=== PATIENT | male | born 1980 | race African-American/Black ===

== ENCOUNTER 2022-06-02 10:38 | Inpatient (IN) | payer OTHER ==
[2022-06-02 13:59] VITALS: BMI 23.5
[2022-06-02] MEDS ORDERED: DICYCLOMINE HCL 10 MG CAPSULE PO PRN (15:48)
[2022-06-02] MEDS ORDERED: IBUPROFEN 600 MG TABLET (FP) PO PRN (15:48)
[2022-06-02] MEDS ORDERED: chlordiazePOXIDE HCL 25 MG CAPSULE PO PRN (15:48)
[2022-06-02] MEDS ORDERED: MAG HYDROX/AL HYDROX/SIMETH 30 ML UNIT-DOSE CUP PO PRN (15:48)
[2022-06-02] MEDS ORDERED: NICOTINE 10 MG CARTRIDGE (INHALER) IH PRN (15:48)
[2022-06-02] MEDS ORDERED: MAGNESIUM CITRATE 300 ML BOTTLE PO PRN (15:48)
[2022-06-02] MEDS ORDERED: IBUPROFEN 400 MG TABLET (FP) PO PRN (15:48)
[2022-06-02] MEDS ORDERED: LOPERAMIDE HCL 2 MG CAPSULE PO PRN (15:48)
[2022-06-02] MEDS ORDERED: MAGNESIUM HYDROX 2400MG/30ML ORAL SUSPENSION 30 ML CUP PO PRN (15:48)
[2022-06-02] MEDS ORDERED: NALOXONE HCL (KLOXXADO) 8 MG SPRAY NS PRN (15:48)
[2022-06-02] MEDS ORDERED: ONDANSETRON *ODT* 4 MG TABLET SL PRN (15:48)
[2022-06-02] MEDS ORDERED: ACETAMINOPHEN 325 MG TABLET (FP) PO PRN ×2 (15:48)
[2022-06-02] MEDS ORDERED: BENZOCAINE/MENTHOL (CHLORASEPTIC ) LOZENGE MM PRN (15:48)
[2022-06-02] MEDS ORDERED: BISMUTH SUBSALICYLATE 524 MG/30 ML PO PRN (15:48)
[2022-06-02] MEDS ORDERED: hydrOXYzine PAMOATE 25 MG CAPSULE (FP) PO ONE (16:25)
[2022-06-02] MEDS: hydrOXYzine PAMOATE 25 MG CAPSULE (FP) PO PRN ×3 (16:28→22:40)
[2022-06-02] MEDS: chlordiazePOXIDE HCL 25 MG CAPSULE PO SCH ×2 (17:04→22:40)
[2022-06-02] MEDS ORDERED: chlordiazePOXIDE HCL 25 MG CAPSULE ONE (17:05)
[2022-06-02] MEDS: METHOCARBAMOL 500 MG TABLET PO PRN (18:18)
[2022-06-02] MEDS: MELATONIN 5 MG TABLETS PO SCH (22:40)
[2022-06-02] MEDS: THIAMINE HCL 100 MG TABLET (FP) PO SCH (22:40)
[2022-06-03] MEDS: chlordiazePOXIDE HCL 25 MG CAPSULE PO SCH ×4 (06:05→22:22)
[2022-06-03] MEDS: PRENATAL VITAMINS W/ FOLIC ACID TABLET (FP) PO SCH (10:38)
[2022-06-03] MEDS: amLODIPine BESYLATE 5 MG TABLET (FP) PO SCH (10:38)
[2022-06-03] MEDS: METOPROLOL TARTRATE 25 MG TABLET (FP) PO SCH (10:38)
[2022-06-03] MEDS: METHOCARBAMOL 500 MG TABLET PO PRN (10:38)
[2022-06-03 11:24] LABS: HEMATOCRIT 37.4 % (35.4-49); HEMOGLOBIN 12.7 GM/dL (11.7-16.9); MCH 32.1 pg (25.7-33.7); MEAN CELL VOLUME 94.3 fl (80-96); MEAN PLT VOLUME 8.5 fl (7.5-11.1); PLATELET COUNT 150 10^3/uL (134-434); RBC 3.96 M/mm3 (4.00-5.60); RDW 15.3 % (11.9-15.9); WHITE BLOOD COUNT 2.7 K/mm3 (4.0-10.0)
[2022-06-03 11:27] LABS: CHLORIDE 100 mmol/L (98-107)
[2022-06-03 11:32] LABS: ALBUMIN 3.7 g/dl (3.4-5.0); CALCIUM 9.2 mg/dL (8.5-10.1); GLUCOSE,RANDOM 94 mg/dL (74-106)
[2022-06-03 11:34] LABS: BLOOD UREA NITROGEN 9.9 mg/dL (7-18); CO2 29 mmol/L (21-32)
[2022-06-03 11:36] LABS: CREATININE 0.9 mg/dL (0.55-1.3); SGOT/AST 127 U/L (15-37); SGPT/ALT 109 U/L (13-61)
[2022-06-03 11:37] LABS: BILIRUBIN,TOTAL 1.3 mg/dL (0.2-1); TOT PROT 6.3 g/dl (6.4-8.2)
[2022-06-03 11:38] LABS: ALK PHOS 105 U/L (45-117)
[2022-06-03 11:43] LABS: ANION GAP 12 MMOL/L (8-16); SODIUM 141 mmol/L (136-145)
[2022-06-03] MEDS ORDERED: FLU VACC QS2022-23(6MOS UP)/PF 60 MCG/0.5 ML SYRINGE IM ONE (12:00)
[2022-06-03] MEDS ORDERED: POTASSIUM CHLORIDE TABS 20 MEQ TABLET.ER (FP) PO ONE (14:00)
[2022-06-03] MEDS: GABAPENTIN 100 MG CAPSULE PO SCH ×3 (14:08→23:44)
[2022-06-03] MEDS: THIAMINE HCL 100 MG TABLET (FP) PO SCH (22:22)
[2022-06-03] MEDS: POTASSIUM CHLORIDE TABS 20 MEQ TABLET.ER (FP) PO SCH (22:22)
[2022-06-03] MEDS: MELATONIN 5 MG TABLETS PO SCH (22:22)
[2022-06-04] MEDS: chlordiazePOXIDE HCL 25 MG CAPSULE PO SCH ×4 (05:44→22:32)
[2022-06-04] MEDS: GABAPENTIN 100 MG CAPSULE PO SCH ×3 (05:44→22:31)
[2022-06-04] MEDS: METOPROLOL TARTRATE 25 MG TABLET (FP) PO SCH (10:32)
[2022-06-04] MEDS: POTASSIUM CHLORIDE TABS 20 MEQ TABLET.ER (FP) PO SCH ×2 (10:32→22:32)
[2022-06-04] MEDS: amLODIPine BESYLATE 5 MG TABLET (FP) PO SCH (10:32)
[2022-06-04] MEDS: PRENATAL VITAMINS W/ FOLIC ACID TABLET (FP) PO SCH (10:32)
[2022-06-04] MEDS: hydrOXYzine PAMOATE 25 MG CAPSULE (FP) PO PRN ×2 (18:04→22:31)
[2022-06-04] MEDS: METHOCARBAMOL 500 MG TABLET PO PRN (18:04)
[2022-06-04] MEDS: MELATONIN 5 MG TABLETS PO SCH (22:31)
[2022-06-04] MEDS: THIAMINE HCL 100 MG TABLET (FP) PO SCH (22:31)
[2022-06-05] MEDS ORDERED: chlordiazePOXIDE HCL 10 MG CAPSULE PO PRN
[2022-06-05] MEDS ORDERED: chlordiazePOXIDE HCL 10 MG CAPSULE PO SCH (05:00)
[2022-06-05] MEDS: GABAPENTIN 100 MG CAPSULE PO SCH ×3 (06:07→22:31)
[2022-06-05] MEDS ORDERED: LORazepam 0.5 MG TABLET PO PRN (10:36)
[2022-06-05] MEDS: POTASSIUM CHLORIDE TABS 20 MEQ TABLET.ER (FP) PO SCH ×2 (10:56→22:31)
[2022-06-05] MEDS: PRENATAL VITAMINS W/ FOLIC ACID TABLET (FP) PO SCH (10:56)
[2022-06-05] MEDS: METOPROLOL TARTRATE 25 MG TABLET (FP) PO SCH (10:56)
[2022-06-05] MEDS: amLODIPine BESYLATE 5 MG TABLET (FP) PO SCH (10:56)
[2022-06-05 12:27] LABS: CALCIUM 10.2 mg/dL (8.5-10.1)
[2022-06-05 12:28] LABS: ALBUMIN 3.7 g/dl (3.4-5.0); BLOOD UREA NITROGEN 9.8 mg/dL (7-18)
[2022-06-05 12:33] LABS: BILIRUBIN,TOTAL 0.5 mg/dL (0.2-1); TOT PROT 6.6 g/dl (6.4-8.2)
[2022-06-05] MEDS: LORazepam 0.5 MG TABLET PO SCH ×2 (14:01→22:31)
[2022-06-05] MEDS: MELATONIN 5 MG TABLETS PO SCH (22:30)
[2022-06-05] MEDS: THIAMINE HCL 100 MG TABLET (FP) PO SCH (22:31)
[2022-06-06] MEDS ORDERED: chlordiazePOXIDE HCL 10 MG CAPSULE PO SCH (05:00)
[2022-06-06] MEDS: LORazepam 0.5 MG TABLET PO SCH ×2 (05:49→19:03)
[2022-06-06] MEDS: GABAPENTIN 100 MG CAPSULE PO SCH ×3 (05:49→22:22)
[2022-06-06] MEDS: PRENATAL VITAMINS W/ FOLIC ACID TABLET (FP) PO SCH (10:09)
[2022-06-06] MEDS: amLODIPine BESYLATE 5 MG TABLET (FP) PO SCH (10:10)
[2022-06-06] MEDS: METOPROLOL TARTRATE 25 MG TABLET (FP) PO SCH (10:10)
[2022-06-06] MEDS: hydrOXYzine PAMOATE 25 MG CAPSULE (FP) PO PRN (10:10)
[2022-06-06] MEDS: POTASSIUM CHLORIDE TABS 20 MEQ TABLET.ER (FP) PO SCH (10:10)
[2022-06-06] MEDS: THIAMINE HCL 100 MG TABLET (FP) PO SCH (22:21)
[2022-06-06] MEDS: MELATONIN 5 MG TABLETS PO SCH (22:21)
[2022-06-07] MEDS ORDERED: chlordiazePOXIDE HCL 10 MG CAPSULE PO ONE (05:00)
[2022-06-07] MEDS: GABAPENTIN 100 MG CAPSULE PO SCH (05:58)
[2022-06-07] MEDS ORDERED: LORazepam 0.5 MG TABLET PO ONE (06:00)
[2022-06-07 09:01] VITALS: RESP 20
[2022-06-07] MEDS: METOPROLOL TARTRATE 25 MG TABLET (FP) PO SCH (10:04)
[2022-06-07] MEDS: amLODIPine BESYLATE 5 MG TABLET (FP) PO SCH (10:04)
[2022-06-07] MEDS: PRENATAL VITAMINS W/ FOLIC ACID TABLET (FP) PO SCH (10:04)
[2022-06-07 12:44] VITALS: BP 113/72; PULSE 74; TEMP 98.4
== END 2022-06-07 12:54 | disposition home or self-care (01) | DRG 775 ==
LOC: YASAS 10:38 → Y6N 17:25
PROVIDERS: ADMIT Allergy & Immunology; ATTEND Surgery
PROC: HZ2ZZZZ Detoxification Services for Substance Abuse Treatment (ICD-10-PCS; principal; 2022-06-02)
DX: F10.230 Alcohol dependence with withdrawal, uncomplicated (principal); F12.20 Cannabis dependence, uncomplicated; F17.210 Nicotine dependence, cigarettes, uncomplicated; F19.24 Other psychoactive substance dependence with psychoactive substance-induced mood disorder; F41.9 Anxiety disorder, unspecified; G47.00 Insomnia, unspecified; I10 Essential (primary) hypertension; Z86.69 Personal history of other diseases of the nervous system and sense organs
CPT/HCPCS: 36415; 80053; 85027; 86780; 87811; C9803-CS; Q0162; Q2036; U0003; U0005

== ENCOUNTER 2023-08-23 17:13 | Inpatient (IN) | payer OTHER ==
[2023-08-23 18:13] VITALS: BMI 28.0
[2023-08-23] MEDS ORDERED: P-EPHED 60MG/TRIPROLIDI 2.5MG TABLET PO PRN (19:06)
[2023-08-23] MEDS ORDERED: POLYETHYLENE GLYCOL (HEALTHYLAX) 3350 17 GM PACKET PO PRN (19:06)
[2023-08-23] MEDS ORDERED: BENZOCAINE/MENTHOL (CHLORASEPTIC ) LOZENGE MM PRN (19:06)
[2023-08-23] MEDS ORDERED: ACETAMINOPHEN 325 MG TABLET (FP) PO PRN (19:06)
[2023-08-23] MEDS ORDERED: MAG HYDROX/AL HYDROX/SIMETH 30 ML UNIT-DOSE CUP PO PRN (19:06)
[2023-08-23] MEDS ORDERED: hydrOXYzine PAMOATE 25 MG CAPSULE (FP) PO PRN (19:06)
[2023-08-23] MEDS ORDERED: IBUPROFEN 400 MG TABLET (FP) PO PRN (19:06)
[2023-08-23] MEDS ORDERED: DICYCLOMINE HCL 10 MG CAPSULE PO PRN (19:06)
[2023-08-23] MEDS ORDERED: MAGNESIUM HYDROX 2400MG/30ML ORAL SUSPENSION 30 ML CUP PO PRN (19:06)
[2023-08-23] MEDS ORDERED: IBUPROFEN 600 MG TABLET (FP) PO PRN (19:06)
[2023-08-23] MEDS ORDERED: BISMUTH SUBSALICYLATE 524 MG/30 ML PO PRN (19:06)
[2023-08-23] MEDS ORDERED: LOPERAMIDE HCL 2 MG CAPSULE PO PRN (19:06)
[2023-08-23] MEDS ORDERED: guaiFENesin 600 MG TABLET.ER (FP) PO PRN (19:06)
[2023-08-23] MEDS ORDERED: ONDANSETRON *ODT* 4 MG TABLET SL PRN (19:06)
[2023-08-23] MEDS ORDERED: BENZONATATE 200 MG CAPSULE PO PRN (19:06)
[2023-08-23] MEDS ORDERED: METOPROLOL TARTRATE 25 MG TABLET (FP) PO SCH (19:15)
[2023-08-23] MEDS ORDERED: METOPROLOL TARTRATE 25 MG TABLET (FP) ONE (19:26)
[2023-08-23] MEDS ORDERED: MELATONIN 5 MG TABLETS PO SCH (22:00)
[2023-08-23] MEDS: METHOCARBAMOL 500 MG TABLET PO PRN (22:10)
[2023-08-23] MEDS: THIAMINE HCL 100 MG TABLET (FP) PO SCH (22:10)
[2023-08-24] MEDS ORDERED: chlordiazePOXIDE HCL 25 MG CAPSULE PO PRN (09:01)
[2023-08-24] MEDS: chlordiazePOXIDE HCL 25 MG CAPSULE PO SCH ×3 (10:19→22:11)
[2023-08-24] MEDS: PRENATAL VITAMINS W/ FOLIC ACID TABLET (FP) PO SCH (10:20)
[2023-08-24] MEDS: amLODIPine BESYLATE 5 MG TABLET (FP) PO SCH (10:20)
[2023-08-24] MEDS: PANTOPRAZOLE 20 MG TABLET PO SCH (10:20)
[2023-08-24] MEDS: metoPROLOL SUCCINATE 25 MG TAB.SR.24H (FP) PO SCH (10:21)
[2023-08-24 11:06] LABS: HEMATOCRIT 40.8 % (35.4-49); HEMOGLOBIN 13.6 GM/dL (11.7-16.9); MCH 29.8 pg (25.7-33.7); MCHC 33.4 g/dl (32.0-35.9); MEAN CELL VOLUME 89.4 fl (80-96); MEAN PLT VOLUME 8.4 fl (7.5-11.1); PLATELET COUNT 233 10^3/uL (134-434); RBC 4.56 M/mm3 (4.00-5.60); RDW 14.3 % (11.9-15.9); WHITE BLOOD COUNT 5.1 K/mm3 (4.0-10.0)
[2023-08-24 11:58] LABS: POTASSIUM 3.1 mmol/L (3.5-5.1)
[2023-08-24 12:03] LABS: ALBUMIN 3.6 g/dl (3.4-5.0); BLOOD UREA NITROGEN 9.8 mg/dL (7-18); CALCIUM 9.4 mg/dL (8.5-10.1)
[2023-08-24 12:06] LABS: CREATININE 1.2 mg/dL (0.55-1.3)
[2023-08-24 12:08] LABS: TOT PROT 6.7 g/dl (6.4-8.2)
[2023-08-24 12:52] LABS: HIV INTERPRETATION NEGATIVE (NEGATIVE)
[2023-08-24] MEDS: DOXEPIN HCL 25 MG CAPSULE PO SCH (22:11)
[2023-08-24] MEDS: traZODone HCL 100 MG TABLET (FP) PO PRN (22:11)
[2023-08-24] MEDS: THIAMINE HCL 100 MG TABLET (FP) PO SCH (22:11)
[2023-08-25] MEDS: chlordiazePOXIDE HCL 25 MG CAPSULE PO SCH ×4 (05:28→22:31)
[2023-08-25] MEDS: PRENATAL VITAMINS W/ FOLIC ACID TABLET (FP) PO SCH (10:25)
[2023-08-25] MEDS: metoPROLOL SUCCINATE 25 MG TAB.SR.24H (FP) PO SCH (10:26)
[2023-08-25] MEDS: PANTOPRAZOLE 20 MG TABLET PO SCH (10:26)
[2023-08-25] MEDS: amLODIPine BESYLATE 5 MG TABLET (FP) PO SCH (10:26)
[2023-08-25] MEDS ORDERED: POTASSIUM CHLORIDE ORAL LIQUID 20 MEQ/15 ML PO ONE (10:28)
[2023-08-25] MEDS: DOXEPIN HCL 25 MG CAPSULE PO SCH (22:31)
[2023-08-25] MEDS: traZODone HCL 100 MG TABLET (FP) PO PRN (22:31)
[2023-08-25] MEDS: THIAMINE HCL 100 MG TABLET (FP) PO SCH (22:32)
[2023-08-25] MEDS: METHOCARBAMOL 500 MG TABLET PO PRN (22:32)
[2023-08-26] MEDS: chlordiazePOXIDE HCL 10 MG CAPSULE PO SCH ×4 (05:50→22:11)
[2023-08-26] MEDS ORDERED: chlordiazePOXIDE 5 MG CAPSULE ONE ×2 (09:57→21:09)
[2023-08-26] MEDS: metoPROLOL SUCCINATE 25 MG TAB.SR.24H (FP) PO SCH (10:26)
[2023-08-26] MEDS: amLODIPine BESYLATE 5 MG TABLET (FP) PO SCH (10:26)
[2023-08-26] MEDS: PANTOPRAZOLE 20 MG TABLET PO SCH (10:26)
[2023-08-26] MEDS: PRENATAL VITAMINS W/ FOLIC ACID TABLET (FP) PO SCH (10:26)
[2023-08-26] MEDS: traZODone HCL 100 MG TABLET (FP) PO PRN (22:10)
[2023-08-26] MEDS: THIAMINE HCL 100 MG TABLET (FP) PO SCH (22:10)
[2023-08-26] MEDS: DOXEPIN HCL 25 MG CAPSULE PO SCH (22:10)
[2023-08-27] MEDS: chlordiazePOXIDE HCL 10 MG CAPSULE PO SCH ×2 (05:13→17:11)
[2023-08-27] MEDS: PANTOPRAZOLE 20 MG TABLET PO SCH (10:38)
[2023-08-27] MEDS: PRENATAL VITAMINS W/ FOLIC ACID TABLET (FP) PO SCH (10:38)
[2023-08-27] MEDS: metoPROLOL SUCCINATE 25 MG TAB.SR.24H (FP) PO SCH (10:38)
[2023-08-27] MEDS: amLODIPine BESYLATE 5 MG TABLET (FP) PO SCH (10:38)
[2023-08-27] MEDS: traZODone HCL 100 MG TABLET (FP) PO PRN (22:24)
[2023-08-27] MEDS: THIAMINE HCL 100 MG TABLET (FP) PO SCH (22:24)
[2023-08-27] MEDS: METHOCARBAMOL 500 MG TABLET PO PRN (22:24)
[2023-08-27] MEDS: DOXEPIN HCL 25 MG CAPSULE PO SCH (22:24)
[2023-08-28] MEDS ORDERED: chlordiazePOXIDE HCL 10 MG CAPSULE PO ONE (05:00)
[2023-08-28 06:02] VITALS: RESP 16
[2023-08-28 09:51] VITALS: BP 124/80; PULSE 61; TEMP 97.7
[2023-08-28] MEDS: amLODIPine BESYLATE 5 MG TABLET (FP) PO SCH (10:31)
[2023-08-28] MEDS: metoPROLOL SUCCINATE 25 MG TAB.SR.24H (FP) PO SCH (10:31)
[2023-08-28] MEDS: PRENATAL VITAMINS W/ FOLIC ACID TABLET (FP) PO SCH (10:31)
[2023-08-28] MEDS: PANTOPRAZOLE 20 MG TABLET PO SCH (10:31)
== END 2023-08-28 12:15 | disposition home or self-care (01) | DRG 775 ==
LOC: YASAS 17:13 → Y6N 19:05
PROVIDERS: ADMIT Allergy & Immunology; ATTEND Allergy & Immunology
PROC: HZ2ZZZZ Detoxification Services for Substance Abuse Treatment (ICD-10-PCS; principal; 2023-08-23)
DX: F10.230 Alcohol dependence with withdrawal, uncomplicated (principal); F10.282 Alcohol dependence with alcohol-induced sleep disorder; F10.24 Alcohol dependence with alcohol-induced mood disorder; F41.9 Anxiety disorder, unspecified; F32.A Depression, unspecified; E87.6 Hypokalemia; I10 Essential (primary) hypertension; K21.9 Gastro-esophageal reflux disease without esophagitis
CPT/HCPCS: 36415; 80053; 84132; 85027; 86780; 87389; 87635; 87811

== ENCOUNTER 2023-11-04 09:47 | Inpatient (IN) | payer OTHER ==
[2023-11-04 10:28] VITALS: BMI 28.1
[2023-11-04] MEDS ORDERED: BISMUTH SUBSALICYLATE 524 MG/30 ML PO PRN (10:41)
[2023-11-04] MEDS ORDERED: IBUPROFEN 400 MG TABLET (FP) PO PRN (10:41)
[2023-11-04] MEDS ORDERED: ONDANSETRON *ODT* 4 MG TABLET SL PRN (10:41)
[2023-11-04] MEDS ORDERED: guaiFENesin 600 MG TABLET.ER (FP) PO PRN (10:41)
[2023-11-04] MEDS ORDERED: DICYCLOMINE HCL 10 MG CAPSULE PO PRN (10:41)
[2023-11-04] MEDS ORDERED: chlordiazePOXIDE HCL 25 MG CAPSULE PO PRN (10:41)
[2023-11-04] MEDS ORDERED: MAG HYDROX/AL HYDROX/SIMETH 30 ML UNIT-DOSE CUP PO PRN (10:41)
[2023-11-04] MEDS ORDERED: BENZOCAINE/MENTHOL (CHLORASEPTIC ) LOZENGE MM PRN (10:41)
[2023-11-04] MEDS ORDERED: POLYETHYLENE GLYCOL (HEALTHYLAX) 3350 17 GM PACKET PO PRN (10:41)
[2023-11-04] MEDS ORDERED: MAGNESIUM HYDROX 2400MG/30ML ORAL SUSPENSION 30 ML CUP PO PRN (10:41)
[2023-11-04] MEDS ORDERED: LOPERAMIDE HCL 2 MG CAPSULE PO PRN (10:41)
[2023-11-04] MEDS ORDERED: BENZONATATE 200 MG CAPSULE PO PRN (10:41)
[2023-11-04] MEDS ORDERED: ACETAMINOPHEN 325 MG TABLET (FP) PO PRN (10:41)
[2023-11-04] MEDS: chlordiazePOXIDE HCL 25 MG CAPSULE PO SCH (11:29)
[2023-11-04] MEDS ORDERED: chlordiazePOXIDE HCL 25 MG CAPSULE ONE (11:30)
[2023-11-04] MEDS: THIAMINE 100 MG TABLET PO SCH (22:32)
[2023-11-04] MEDS: MELATONIN 5 MG TABLETS PO SCH (22:33)
[2023-11-05] MEDS: PRENATAL VITAMINS W/ FOLIC ACID TABLET (FP) PO SCH (10:29)
[2023-11-05 11:17] LABS: HEMATOCRIT 38.5 % (35.4-49); HEMOGLOBIN 13.1 GM/dL (11.7-16.9); MCH 30.9 pg (25.7-33.7); MCHC 34.1 g/dl (32.0-35.9); MEAN CELL VOLUME 90.6 fl (80-96); MEAN PLT VOLUME 7.8 fl (7.5-11.1); PLATELET COUNT 276 10^3/uL (134-434); RBC 4.24 M/mm3 (4.00-5.60); WHITE BLOOD COUNT 3.5 K/mm3 (4.0-10.0)
[2023-11-05 11:18] LABS: POTASSIUM 3.2 mmol/L (3.5-5.1)
[2023-11-05 11:23] LABS: ALBUMIN 3.5 g/dl (3.4-5.0); CALCIUM 8.9 mg/dL (8.5-10.1)
[2023-11-05 11:26] LABS: CREATININE 1.2 mg/dL (0.55-1.3)
[2023-11-05 11:27] LABS: BILIRUBIN,TOTAL 1.3 mg/dL (0.2-1)
[2023-11-05 11:28] LABS: TOT PROT 6.3 g/dl (6.4-8.2)
[2023-11-05] MEDS ORDERED: POTASSIUM CHLORIDE ORAL LIQUID 20 MEQ/15 ML PO ONE ×2 (15:30→19:30)
[2023-11-05] MEDS: POTASSIUM CHLORIDE ORAL LIQUID 20 MEQ/15 ML PO SCH (15:47)
[2023-11-05] MEDS: IBUPROFEN 600 MG TABLET (FP) PO PRN (22:22)
[2023-11-06] MEDS: chlordiazePOXIDE HCL 25 MG CAPSULE PO SCH (05:16)
[2023-11-06] MEDS: METHOCARBAMOL 500 MG TABLET PO PRN (10:17)
[2023-11-07] MEDS ORDERED: chlordiazePOXIDE HCL 10 MG CAPSULE PO PRN
[2023-11-07] MEDS: chlordiazePOXIDE HCL 10 MG CAPSULE PO SCH (05:21)
[2023-11-07] MEDS: FAMOTIDINE 20 MG TABLET PO SCH (10:24)
[2023-11-07] MEDS: amLODIPine BESYLATE 5 MG TABLET (FP) PO SCH (10:24)
[2023-11-07] MEDS: metoPROLOL SUCCINATE 25 MG TAB.SR.24H (FP) PO SCH (10:26)
[2023-11-07] MEDS ORDERED: metoPROLOL SUCCINATE 25 MG TAB.SR.24H (FP) PO SCH (10:30)
[2023-11-07] MEDS: METOPROLOL TARTRATE 25 MG TABLET (FP) PO ONE (17:02)
[2023-11-08] MEDS: chlordiazePOXIDE HCL 10 MG CAPSULE PO SCH (05:22)
[2023-11-09] MEDS: chlordiazePOXIDE HCL 10 MG CAPSULE PO ONE (05:18)
[2023-11-09 08:50] VITALS: TEMP 98
[2023-11-09 13:14] VITALS: BP 145/93; PULSE 61; RESP 17
== END 2023-11-09 13:58 | disposition home or self-care (01) | DRG 775 ==
LOC: YASAS 09:47 → Y6N 11:45
PROVIDERS: ADMIT Allergy & Immunology; ATTEND Psychiatry & Neurology Pain Medicine
PROC: HZ2ZZZZ Detoxification Services for Substance Abuse Treatment (ICD-10-PCS; principal; 2023-11-04)
DX: F10.230 Alcohol dependence with withdrawal, uncomplicated (principal); F12.20 Cannabis dependence, uncomplicated; F17.210 Nicotine dependence, cigarettes, uncomplicated; F41.9 Anxiety disorder, unspecified; E87.6 Hypokalemia; I10 Essential (primary) hypertension; K21.9 Gastro-esophageal reflux disease without esophagitis
CPT/HCPCS: 36415; 80053; 82247; 84132; 84450; 84460; 85027; 86780; 87811